=== PATIENT | female | born 1940 | race Asian ===

== ENCOUNTER 2020-11-08 09:18 | Emergency (ER) | payer OTHER ==
[~2020-11-08] VITALS: Ht 152.4 cm; Wt 55.3 kg
--- NOTE | 2020-11-08 09:46 | NUR ---
PT BIB SON VIA POV. PER PT SHE FEELS LIKE HER LEFT FACE, ARM, AND LEG ARE TINGLING STARTING LAST NIGHT. PT STATES "MY RIGHT LEG ALSO FEELS LIKE IT SOMETIMES." PT STATES HX OF NEUROPATHY AND STATES IT FEELS THE SAME "BUT NOW IT IS MOVING UP CLOSER TO MY HIP". PT STRONG IN ALL EXTREMITIES AND STATES HER SENSATION FEELS NORMAL AT THIS TIME. PT AMBULATED STEADILY IN ROOM. PT RESTING IN [facility], MONITORING IN PLACE, NADN AT THIS TIME, SON AT BEDSIDE, ZUHAIR.
[2020-11-08 11:57] LABS: BASOPHILS % (AUTO) 1 % (0-1); EOSINOPHILS % (AUTO) 3 % (1-7); LYMPHOCYTES % (AUTO) 27 % (22-44); MEAN CORPUSCULAR HEMOGLOBIN 31.3 pg (27.0-34.8); MEAN CORPUSCULAR HGB CONC 33.3 g/dL (32.4-35.8); MEAN PLATELET VOLUME 7.5 fL (7.4-10.4); MONOCYTES % (AUTO) 6 % (2-9); NEUTROPHILS % (AUTO) 64 % (42-75); PLATELET COUNT 229 x10^3/uL (130-400); RED BLOOD COUNT 5.22 x10^6/uL (3.82-5.3); RED CELL DISTRIBUTION WIDTH 13.7 % (9.6-15.2)
[2020-11-08 12:09] LABS: ANION GAP 5 mmol/L (5-15); CALCIUM 9.7 mg/dL (8.5-10.1); CHLORIDE 104 mmol/L (98-107)
[2020-11-08 12:38] VITALS: BP 144/72
== END 2020-11-08 12:40 | disposition home or self-care (01) ==
LOC: EDBD 09:18 → ED 12:30
DX: R20.2 Paresthesia of skin (principal); R94.31 Abnormal electrocardiogram [ECG] [EKG]; R51.9 Headache, unspecified; I10 Essential (primary) hypertension
CPT/HCPCS: 36415; 70450; 80048; 82040; 85025; 93005; 99285